=== PATIENT | male | born 2000 | race Caucasian/White ===

== ENCOUNTER 2022-08-26 12:37 | Outpatient (REF) | payer BC, SELFPAY ==
[2022-08-26 13:58] LABS: Hematocrit 43.8 % (42.0-52.0); Hemoglobin 15.2 g/dl (14.0-18.0); Mean Corpuscular HGB Conc 34.7 g/dl (31.0-36.0); Mean Corpuscular Hemoglobin 30.8 pg (27.0-33.0); Mean Corpuscular Volume 88.8 fL (80.0-98.0); Mean Platelet Volume 9.6 fL (9.4-12.4); Platelet Count 307 X10*3/uL (160-400); Red Blood Count 4.93 X10*6/uL (4.60-5.80); Red Cell Distribution Width 12.6 % (11.0-16.0); White Blood Count 5.9 X10*3/uL (4.8-10.8)
[2022-08-26 14:30] LABS: Alanine Aminotransferase 16 U/L (0-40); Albumin Level 4.6 g/dL (3.5-5.0); Alkaline Phosphatase 78 U/L (39-117); Anion Gap 13 (12-20); Aspartate Amino Transferase 17 U/L (5-37); Bilirubin Total 0.3 mg/dL (0.0-1.0); Blood Urea Nitrogen 15 mg/dL (9-16); Calcium 9.8 mg/dL (8.4-10.2); Carbon Dioxide 26 mmol/L (22-29); Chloride 107 mmol/L (96-108); Cholesterol 205 mg/dL; Estimated Glomerular Filt Rate > 60; Glucose Fasting 91 mg/dL (60-99); HDL Cholesterol 43 mg/dL; LDL Cholesterol Calculated 131 mg/dl; Potassium 5.1 mmol/L (3.3-5.1); Sodium 141 mmol/L (135-145); Total Protein 7.6 g/dL (6.5-8.0); Triglycerides 156 mg/dL
[2022-08-26 14:49] LABS: TSH reflex Free T4 3.15 uIU/mL (0.32-4.0)
== END 2022-08-26 12:38 | disposition home or self-care (01) ==
LOC: HO.WFDLDS 12:37
PROVIDERS: Visit Provider Nurse Practitioner Family
DX: Z00.00 Encounter for general adult medical examination without abnormal findings (principal)
CPT/HCPCS: 36415; 80053; 80061; 84443; 85027

== ENCOUNTER 2023-11-18 14:18 | Emergency (ER) | payer BC, SELFPAY ==
--- NOTE | ~2023-11-18 | US_ITS ---
EXAMINATION: US SCROTUM US SCROTAL DOPPLER CLINICAL INFORMATION: Left scrotal/testicular pain and swelling. Evaluate for testicular torsion.. COMPARISON: None available. TECHNIQUE: A sonogram of the scrotum was performed assessing hebert-scale appearance and color Doppler flow. Spectral Doppler analysis of the arterial and venous flow were performed in the testes bilaterally. FINDINGS: The testicles have normal homogeneous echotexture. No testicular microlithiasis or mass. The right testicle is 4.3 x 2.1 x 3 cm (14 mL and left testicle 3.9 x 2.8 x 3.4 cm (19 mL). Color Doppler images with spectral waveforms show presence of normal arterial and venous flow within testicles. No evidence of testicular torsion. The epididymal heads have a thickness of 1 cm and there are no focal lesions. The color Doppler images show hypervascular appearance of the right and left epididymis, and the left epididymis has a slightly more heterogeneous appearance than the right epididymis. This suggests possibility of mild inflammation from epididymitis. A small left hydrocele is present. No extratesticular mass. US/US scrotum doppler IMPRESSION: * No evidence of testicular mass or torsion. * There is a hypervascular appearance of each epididymis and the left epididymis is slightly heterogeneous which, along with observation of a small left hydrocele, raises suspicion for mild epididymitis.
--- NOTE | ~2023-11-18 | US_ITS ---
EXAMINATION: US SCROTUM US SCROTAL DOPPLER CLINICAL INFORMATION: Left scrotal/testicular pain and swelling. Evaluate for testicular torsion.. COMPARISON: None available. TECHNIQUE: A sonogram of the scrotum was performed assessing hebert-scale appearance and color Doppler flow. Spectral Doppler analysis of the arterial and venous flow were performed in the testes bilaterally. FINDINGS: The testicles have normal homogeneous echotexture. No testicular microlithiasis or mass. The right testicle is 4.3 x 2.1 x 3 cm (14 mL and left testicle 3.9 x 2.8 x 3.4 cm (19 mL). Color Doppler images with spectral waveforms show presence of normal arterial and venous flow within testicles. No evidence of testicular torsion. The epididymal heads have a thickness of 1 cm and there are no focal lesions. The color Doppler images show hypervascular appearance of the right and left epididymis, and the left epididymis has a slightly more heterogeneous appearance than the right epididymis. This suggests possibility of mild inflammation from epididymitis. A small left hydrocele is present. No extratesticular mass. US/US scrotum IMPRESSION: * No evidence of testicular mass or torsion. * There is a hypervascular appearance of each epididymis and the left epididymis is slightly heterogeneous which, along with observation of a small left hydrocele, raises suspicion for mild epididymitis.
[2023-11-18 14:34] VITALS: BP 136/91; PULSE 90; RESP 18; TEMP 36.6; O2SAT 99; BMI 31.4
--- NOTE | 2023-11-18 14:35 | ED_ITS ---
HPI - Male Genitourinary General Chief complaint: Urogenital-Male Stated complaint: Swelling L testicle Time Seen by Provider: 11/18/23 16:54 Source: patient Mode of arrival: ambulatory Limitations: no limitations History of Present Illness ED Provider: arianna REINA Narrative: Patient is sexually active with no history of STDs in the past comes here for pain in the left testicle started earlier today increases on standing , no penis discharge no abdominal pain no history of kidney stone no urinary symptoms Related Data Previous Rx's ?Medication ?Instructions ?Recorded doxycycline hyclate 100 mg tablet 100 mg PO BID #20 tabs 11/18/23 ibuprofen 600 mg tablet 600 mg PO Q6H PRN fever or pain 11/18/23 #30 tabs Allergies Allergy/AdvReac Type Severity Reaction Status Date / Time No Known Allergies Allergy Verified 11/18/23 14:36 Review of Systems Review of Systems: Yes all other systems are reviewed and are negative PMFSH Past Medical History Surgical History [employer] teeth extracted Family History Family History Paternal Grandfather Prostate cancer Social History Social History Alcohol intake: current Alcohol intake frequency: holidays/special occasions only Alcohol type: hard liquor Patient Tobacco Use Status: Never used Tobacco Smoked in Last 30 Days: No e-Cigarette/Vaping Use: Former Use Use of substances other than those prescribed or required for medical reasons: No Advance Directives: No Advance Directives Information Provided: No service: No Current occupational status: employed Current occupation: [employer] Current occupational exposures/hazards: No Physical Exam Vital Signs: Vital Signs: Last Vital Signs Temp 98.2 F 11/18/23 17:46 Pulse 73 11/18/23 17:46 Resp 14 11/18/23 17:46 BP 127/89 11/18/23 17:46 Pulse Ox 98 11/18/23 17:46 O2 Del Method Room Air 11/18/23 17:46 BMI result Body Mass Index 31.4 Appearance: Alert. Oriented X3. No acute distress. Neck: Normal inspection. Neck supple. CVS: Normal heart rate and rhythm. Pulses normal. Respiratory: No respiratory distress. Equal air entry bilateral, Abdomen: Soft and nontender. Bowel sounds are present, no mass palpable, no CVA tenderness Skin: Skin warm and dry. Normal skin color. Normal skin turgor. ; tender L testicle epididymis cremasteric reflex normal no hydrocele or h ernia Extremities: No lower extremity edema. No calf tenderness Neuro: Oriented X 3. Course Course Course Narrative: This is a Rapid Medical Exam performed in triage by Cinthia Nixon PA-C. Full HPI, ROS and PE to be performed by primary ED provider. 23 year-old w/ PMHx presenting to the ED c/o L testicular pain since 8AM w/assoc swelling. denies precipitating factors, N/V, lesions, dysuria. PE: nontoxic appearing. Area not examined in triage Plan: UA, CTNG, US Medications Administered Discontinued Medications Generic Name Dose Route Start Last Admin Trade Name Freq PRN Reason Stop Dose Admin Ceftriaxone Sodium 500 mg/ 0 mg 11/18/23 17:30 11/18/23 17:43 Lidocaine HCl 1 ml IM 11/18/23 17:31 1 kit ONCE ONE Administration Doxycycline Monohydrate 100 mg 11/18/23 17:30 11/18/23 17:43 Doxycycline Monohydrate 100 Mg Capsule PO 11/18/23 17:31 100 mg ONCE ONE Administration Medical Decision Making Differential Diagnosis Differential Diagnoses: The differential diagnosis associated with the presentation includes Epididymitis/testicular torsion/kidney stone/ hydrocele/hernia Lab Data MDM Lab Attestation statement: I reviewed the patient's lab results. Labs: Lab Results 11/18/23 Range/Units 15:35 Urine Color Yellow Urine Appearance Clear Urine pH 6.5 (5.0-9.0) Ur Specific [place] >= 1.030 H (1.005-1.025) Urine Protein Negative (Neg-Trace) mg/dL Urine Glucose (UA) Negative (Negative) mg/dL Urine Ketones Trace (Negative) mg/dL Urine Blood Negative (Negative) Urine Nitrite Negative (Negative) Ur Leukocyte Esterase Negative (Negative) Chlam trachomat DNA PCR NOT DETECTED (Not Detect.) N.gonorrhoeae DNA (PCR) NOT DETECTED (Not Detect.) Independent Interpretation I performed an independent interpretation of an: Ultrasound Radiology Impression Discussion of test interpretation with radiology: I have reviewed the radiologist's reading. Discharge Plan Discharge Clinical Impression: Epididymitis Patient Disposition: Home, Self-Care Instructions: Epididymitis (ED) Additional Instructions: Scrotal support as advised Take antibiotics As prescribed Report to the ER if worsening of the pain Follow up with PCP Prescriptions: New doxycycline hyclate 100 mg tablet 100 mg PO BID Qty: 20 0RF ibuprofen 600 mg tablet 600 mg PO Q6H PRN (Reason: fever or pain) Qty: 30 0RF Interventions: ED Discharge Assessment Last Done: 11/18/23 17:46 Discharge Date/Time: 11/18/23 17:48 Print Language: Albanian
[2023-11-18 15:45] LABS: Appearance Urine Clear; Color Urine Yellow; Glucose Urine UA Negative (Negative); Leukocyte Esterase Urine Negative (Negative); Nitrite Urine Negative (Negative); PH 6.5 (5.0-9.0); Specific Gravity - Urine >= 1.030 (1.005-1.025); Urine Blood Negative (Negative); Urine Ketones Trace mg/dL (Negative); Urine Protein Negative (Neg-Trace)
[2023-11-18 17:01] VITALS: BP 127/89; PULSE 73; RESP 14; TEMP 36.8; O2SAT 98
--- NOTE | 2023-11-18 17:17 | PC.NURSE ---
Pt from waiting room with c/o scrotum pain 01/07. Reports rest as a relieving factor and movement as an exacerbating factor. VSS, A&Ox3, and afebrile. Pt is calm and cooperative and is currently resting comfortably. U/S and urine labs pending. Mother at bedside.
[2023-11-18] MEDS: Doxycycline Monohydrate 100 MG CAPSULE PO (17:43)
[2023-11-18] MEDS: cefTRIAXone sodium 500 MG, Lidocaine HCl 1 % MPF 1 ML IM (17:43)
[2023-11-18 17:46] VITALS: BP 127/89; PULSE 73; RESP 14; TEMP 36.8; O2SAT 98
[2023-11-18 18:42] LABS: CT PCR NOT DETECTED (Not Detect.); NG PCR NOT DETECTED (Not Detect.)
== END 2023-11-18 17:48 | disposition home or self-care (01) ==
PROVIDERS: Physician Assistant; Emergency Provider Internal Medicine
DX: N45.1 Epididymitis (principal); N50.812 Left testicular pain; N50.82 Scrotal pain; N50.89 Other specified disorders of the male genital organs
CPT/HCPCS: 0353U; 76870; 81003; 93975; 96372; 99284; J0696

== ENCOUNTER 2024-02-15 16:41 | Emergency (ER) | payer BC, SELFPAY ==
--- NOTE | ~2024-02-15 | US_ITS ---
Examination: US pelvic limited (accession [id number]), US scrotum (accession [id number]), US scrotum doppler (accession [id number]) Indication: left inguinal pain Comparison: No pertinent prior studies are currently available for comparison. Technique: Multiple sonographic views of the scrotum and inguinal region obtained. Grayscale imaging along with pulsed wave and color flow Doppler utilized. Findings: Right testicle measures 4.6 x 2.4 x 3.0 cm in size for a volume of 16.9 cc. The left testicle measures 4.1 x 2.9 x 3.8 cm for a volume of 23.6 cc. Left epididymis appears slightly heterogeneous with more normal appearance to the right epididymis. On the initial images there did appear to be decreased flow to the left testicle. The attending physician came to the room and twisted the left testicle at that time with return of a more normal arterial and venous waveform pattern to the left testicle. By the end of the study there is more normal expected arterial venous waveform patterns to the left testicle. US/US pelvic limited Impression: Initial images demonstrated decreased vascular flow to the left testicle. The attending physician then came to the room with manipulation of the left testicle with subsequent return of a more normal arterial and venous waveform pattern to the left testicle. Electronically signed by: Sanjay Valenzuela MD 02/15/2024 07:35 PM EDT Workstation: [employer]
--- NOTE | ~2024-02-15 | US_ITS ---
Examination: US pelvic limited (accession [id number]), US scrotum (accession [id number]), US scrotum doppler (accession [id number]) Indication: left inguinal pain Comparison: No pertinent prior studies are currently available for comparison. Technique: Multiple sonographic views of the scrotum and inguinal region obtained. Grayscale imaging along with pulsed wave and color flow Doppler utilized. Findings: Right testicle measures 4.6 x 2.4 x 3.0 cm in size for a volume of 16.9 cc. The left testicle measures 4.1 x 2.9 x 3.8 cm for a volume of 23.6 cc. Left epididymis appears slightly heterogeneous with more normal appearance to the right epididymis. On the initial images there did appear to be decreased flow to the left testicle. The attending physician came to the room and twisted the left testicle at that time with return of a more normal arterial and venous waveform pattern to the left testicle. By the end of the study there is more normal expected arterial venous waveform patterns to the left testicle. US/US scrotum Impression: Initial images demonstrated decreased vascular flow to the left testicle. The attending physician then came to the room with manipulation of the left testicle with subsequent return of a more normal arterial and venous waveform pattern to the left testicle. Electronically signed by: Sanjay Valenzuela MD 02/15/2024 07:35 PM EDT Workstation: [employer]
--- NOTE | ~2024-02-15 | US_ITS ---
Examination: US pelvic limited (accession [id number]), US scrotum (accession [id number]), US scrotum doppler (accession [id number]) Indication: left inguinal pain Comparison: No pertinent prior studies are currently available for comparison. Technique: Multiple sonographic views of the scrotum and inguinal region obtained. Grayscale imaging along with pulsed wave and color flow Doppler utilized. Findings: Right testicle measures 4.6 x 2.4 x 3.0 cm in size for a volume of 16.9 cc. The left testicle measures 4.1 x 2.9 x 3.8 cm for a volume of 23.6 cc. Left epididymis appears slightly heterogeneous with more normal appearance to the right epididymis. On the initial images there did appear to be decreased flow to the left testicle. The attending physician came to the room and twisted the left testicle at that time with return of a more normal arterial and venous waveform pattern to the left testicle. By the end of the study there is more normal expected arterial venous waveform patterns to the left testicle. US/US scrotum doppler Impression: Initial images demonstrated decreased vascular flow to the left testicle. The attending physician then came to the room with manipulation of the left testicle with subsequent return of a more normal arterial and venous waveform pattern to the left testicle. Electronically signed by: Sanjay Valenzuela MD 02/15/2024 07:35 PM EDT
[2024-02-15 17:09] VITALS: BP 143/92; PULSE 78; RESP 16; TEMP 36.9; O2SAT 99; BMI 30.6
--- NOTE | 2024-02-15 17:09 | ED_ITS ---
HPI - Abdominal Pain General Chief Complaint: Abdominal Pain Stated Complaint: ?Hernia/Sent from urgent Care Time Seen by Provider: 02/15/24 18:09 Source: patient Mode of arrival: ambulatory Limitations: no limitations History of Present Illness ED Provider: Dr. Lupe Vasques HPI narrative: patient comes to the emergency room from urgent care. Patient states that approximately 9 hours ago, patient woke up with testicular pain on the left side. Patient went to urgent care and they asked him to come to the emergency room to further get evaluated. Patient denies penile discharge, no hematuria or dysuria, no fever chills. Related Data Previous Rx's ?Medication ?Instructions ?Recorded doxycycline hyclate 100 mg tablet 100 mg PO BID #20 tabs 11/18/23 ibuprofen 600 mg tablet 600 mg PO Q6H PRN fever or pain 11/18/23 #30 tabs Allergies Allergy/AdvReac Type Severity Reaction Status Date / Time No Known Allergies Allergy Verified 02/15/24 17:11 Review of Systems Review of Systems Constitutional : No Weight loss, No Fever, No Chills, No Night Sweats, No Fatigue, No Malaise ENT/Mouth : No Hearing loss, No Ear Pain, No Nasal Congestion, No Sinus Pain, No Hoarseness, No sore throat, No Rhinorrhea, No Swallowing Difficulty Eyes: No Eye Pain, No Swelling, No Redness, No Foreign Body, No Discharge, No Vision Changes Cardiovascular : No Chest Pain, No SOB, No Dyspnea on Exertion, No Orthopnea, No Edema, No Palpitations Respiratory : No Cough, No Sputum, No Wheezing, No Smoke Exposure, No Dyspnea Gastrointestinal : No Nausea, No Vomiting, No Diarrhea, No Constipation, No abdominal Pain, No Hematochezia, No Melena Genitourinary : Complaining of left testicular pain and swelling, No Dysuria, No Urinary Frequency, No Hematuria, No Urinary Incontinence, No Urgency, No Flank Pain, No Urinary Flow Changes, No Hesitancy Musculoskeletal : No joint pain, No Myalgias, No Joint Swelling Skin : No Skin Lesions, No rash Neuro : No Weakness, No Numbness, No Paresthesias, No Loss of Consciousness, No Dizziness, No Headache Psych : No Anxiety/Panic, No Depression, No SI/HI/AH/VH, No Social Issues, Heme/Lymph: No Bruising, No Bleeding,No Lymphadenopathy Endocrine : No Polyuria, No Polydipsia, No Temperature Intolerance [facility] Past Medical History Surgical History [employer] teeth extracted Family History Family History Paternal Grandfather Prostate cancer Social History Social History Alcohol intake: current Alcohol intake frequency: holidays/special occasions only Alcohol type: hard liquor Patient Tobacco Use Status: Never used Tobacco Smoked in Last 30 Days: No e-Cigarette/Vaping Use: Former Use Use of substances other than those prescribed or required for medical reasons: No Advance Directives: No Advance Directives Information Provided: No service: No Current occupational status: employed Current occupation: [employer] Current occupational exposures/hazards: No Physical Exam ED Vital Signs: Vital Signs - 24 hr 02/15/24 17:09 Temperature 98.4 F Pulse Rate 78 Respiratory Rate 16 Blood Pressure 143/92 H Pulse Oximetry 99 Oxygen Delivery Method Room Air BMI result Body Mass Index 30.6 Const Other: Appearance: Alert. Oriented X3. No acute distress. Eyes: Pupils equal, round and reactive to light. ENT: Pharynx normal. Neck: Normal inspection. Neck supple. No lymph nodes noted. No crepitus CVS: Normal heart rate and rhythm. Pulses normal. Normal S1 and S2 Respiratory: No respiratory distress. Breath sounds normal. No Wheezing. No rales Abdomen: Soft and nontender. No rigidity. No distention. - : The left testicle looks swollen Skin: Skin warm and dry. Normal skin color. Normal skin turgor. Extremities: No lower extremity edema. No Lacerations. No Rash Neuro: Oriented X 3. No motor deficit. No sensory deficit. Moving all extremities. No slurred speech. CN 2 through 12 grossly intact Psych: calm, cooperative, normal affect Course Course Course Narrative: This is a Rapid Medical Examination (RME) performed by Ayanna Benoit PA-C in triage. Full HPI, ROS, assessment and treatment plan per primary provider in the Main ED. 23 yo male with no medical problems presents to the ER from Urgent Care for evaluation of 9/10 left scrotal pain and left lower abdominal pain that started at 9am when he was moving equipment at work. Pain has been worsening. +nausea but no vomiting. reports significant swelling in the left inguinal area and left testes. Sent in from urgent care to r/o torsion or a hernia. Plan: US, UA and labs Medical Decision Making Medical Decision Making [facility] Narrative: I received a phone call from ultrasound. The patient has no flow to the left testicle. I went to see the patient in the ultrasound room, the towards the testicle. Ultrasound was repeated, patient has now floor. Patient states that he feels much better. - we tiger text Dr. Pabon, urology on-call office, no response. Patient states that he feels well and no longer wants to wait. Patient being discharged. Instructed to return to the emergency room he has any recurring symptoms. Patient will call Dr. Pabon's office for follow-up and possible scheduled surgery Differential Diagnosis Differential Diagnoses: The differential diagnosis associated with the presentation includes ( epididymitis, testicular torsion) Lab Data [facility] Lab Attestation statement: I reviewed the patient's lab results. 02/15/24 17:44 02/15/24 17:44 Labs: Lab Results 02/15/24 Range/Units 17:44 WBC 9.1 (4.8-10.8) X10*3/uL RBC 4.76 (4.60-5.80) X10*6/uL Hgb 15.2 (14.0-18.0) g/dl Hct 42.6 (42.0-52.0) % MCV 89.5 (80.0-98.0) fL MCH 31.9 (27.0-33.0) pg MCHC 35.7 (31.0-36.0) g/dl RDW 12.6 (11.0-16.0) % Plt Count 306 (160-400) X10*3/uL MPV 9.1 L (9.4-12.4) fL Immature Gran % (Auto) 0.1 (0.0-0.4) % Neut % (Auto) 76.5 H (45-73) % Lymph % (Auto) 18.7 L (20-40) % [place] % (Auto) 4.3 (2-11) % Eos % (Auto) 0.1 (0-4) % Baso % (Auto) 0.3 (0-2) % Lymph # (Auto) 1.7 (1.2-4.9) X10*3/uL [place] # (Auto) 0.4 (0.1-1.2) X10*3/uL Eos # (Auto) 0.0 (0.0-0.4) X10*3/uL Baso # (Auto) 0.0 (0.0-0.2) X10*3/uL Abs Immat Gran (auto) 0.01 (0.00-0.03) X10*3/uL Absolute Neuts (auto) 7.0 (2.0-8.3) x10*3/uL Absolute Nucleated RBC 0.000 (0.0-0.012) X10*3/uL Nucleated RBC % (auto) 0.0 (0.0-0.2) /100WBC Sodium 142 (135-145) mmol/L Potassium 4.7 (3.3-5.1) mmol/L Chloride 105 (96-108) mmol/L Carbon Dioxide 27 (22-29) mmol/L Anion Gap 15 (12-20) BUN 13 (9-16) mg/dL Creatinine 0.93 (0.5-1.4) mg/dL Estim Creat Clear Calc 117.6 Estimated GFR > 60 Random Glucose 102 (60-115) mg/dL Calcium 10.0 (8.4-10.2) mg/dL Magnesium 2.2 (1.6-2.6) mg/dL Total Bilirubin 0.6 (0.0-1.0) mg/dL Direct Bilirubin 0.2 (0.0-0.5) mg/dL AST 19 (5-37) U/L ALT 21 (0-40) U/L Alkaline Phosphatase 61 (39-117) U/L Total Protein 8.3 H (6.5-8.0) g/dL Albumin 5.0 (3.5-5.0) g/dL Urine Color Yellow Urine Appearance Clear Urine pH 6.0 (5.0-9.0) Ur Specific [place] >= 1.030 H (1.005-1.025) Urine Protein Negative (Neg-Trace) mg/dL Urine Glucose (UA) Negative (Negative) mg/dL Urine Ketones 15 (Negative) mg/dL Urine Blood Negative (Negative) Urine Nitrite Negative (Negative) Ur Leukocyte Esterase Negative (Negative) Independent Interpretation I performed an independent interpretation of an: Ultrasound Radiology Impression Discussion of test interpretation with radiology: I have reviewed the radiologist's reading. Radiologist Impression: Findings: Right testicle measures 4.6 x 2.4 x 3.0 cm in size for a volume of 16.9 cc. The left testicle measures 4.1 x 2.9 x 3.8 cm for a volume of 23.6 cc. Left epididymis appears slightly heterogeneous with more normal appearance to the right epididymis. On the initial images there did appear to be decreased flow to the left testicle. The attending physician came to the room and twisted the left testicle at that time with return of a more normal arterial and venous waveform pattern to the left testicle. By the end of the study there is more normal expected arterial venous waveform patterns to the left testicle. US/US pelvic limited Impression: Initial images demonstrated decreased vascular flow to the left testicle. The attending physician then came to the room with manipulation of the left testicle with subsequent return of a more normal arterial and venous waveform pattern to the left testicle. Medications Administered Discontinued Medications Generic Name Dose Route Start Last Admin Trade Name Freq PRN Reason Stop Dose Admin Ibuprofen 600 mg 02/15/24 19:19 02/15/24 19:55 Ibuprofen 600 Mg Tablet PO 02/15/24 19:20 600 mg ONCE ONE Administration Critical Care Time Critical Care Time Critical Care Time: Yes Total Critical Care Time: 60 Attestation: I have personally provided critical care time. Time includes review of lab data, radiology results, discussion with consultants, and monitoring for potential decompensation. Intervention performed as documented. Discharge Plan Discharge Clinical Impression: Testicular torsion Patient Disposition: Home, Self-Care Instructions: Testicular Torsion (ED) Additional Instructions: Please follow-up with your primary care physician tomorrow. If you have any worsening or new symptoms, please return to the emergency room or call 911 Prescriptions: No Action doxycycline hyclate 100 mg tablet 100 mg PO BID Qty: 20 0RF ibuprofen 600 mg tablet 600 mg PO Q6H PRN (Reason: fever or pain) Qty: 30 0RF Referrals: Avni Pabon MD [Physician] - 02/16/24 Print Language: Azeri
[2024-02-15 17:49] LABS: MANUAL DIFF FLAG NO
[2024-02-15 17:50] LABS: Basophils Percent Auto 0.3 % (0-2); Eosinophils Percent Auto 0.1 % (0-4); Hematocrit 42.6 % (42.0-52.0); Hemoglobin 15.2 g/dl (14.0-18.0); Imm Gran Abs Auto 0.01 X10*3/uL (0.00-0.03); Imm Gran Pct Auto 0.1 % (0.0-0.4); Lymphocytes Absolute Auto 1.7 X10*3/uL (1.2-4.9); Lymphocytes Percent Auto 18.7 % (20-40); Mean Corpuscular HGB Conc 35.7 g/dl (31.0-36.0); Mean Corpuscular Hemoglobin 31.9 pg (27.0-33.0); Mean Corpuscular Volume 89.5 fL (80.0-98.0); Mean Platelet Volume 9.1 fL (9.4-12.4); Monocytes Absolute Auto 0.4 X10*3/uL (0.1-1.2); Monocytes Percent Auto 4.3 % (2-11); Neutrophils Percent Auto 76.5 % (45-73); Platelet Count 306 X10*3/uL (160-400); Red Blood Count 4.76 X10*6/uL (4.60-5.80); Red Cell Distribution Width 12.6 % (11.0-16.0); White Blood Count 9.1 X10*3/uL (4.8-10.8)
[2024-02-15 18:05] LABS: Appearance Urine Clear; Color Urine Yellow; Glucose Urine UA Negative (Negative); Leukocyte Esterase Urine Negative (Negative); Nitrite Urine Negative (Negative); Specific Gravity - Urine >= 1.030 (1.005-1.025); Urine Blood Negative (Negative); Urine Ketones 15 mg/dL (Negative); Urine Protein Negative (Neg-Trace)
[2024-02-15 18:10] LABS: Alanine Aminotransferase 21 U/L (0-40); Alkaline Phosphatase 61 U/L (39-117); Aspartate Amino Transferase 19 U/L (5-37); Bilirubin Direct 0.2 mg/dL (0.0-0.5); Bilirubin Total 0.6 mg/dL (0.0-1.0); Blood Urea Nitrogen 13 mg/dL (9-16); Carbon Dioxide 27 mmol/L (22-29); Chloride 105 mmol/L (96-108); Creatinine Clr Calc Pharmacy 117.6; Estimated Glomerular Filt Rate > 60; Glucose Random 102 mg/dL (60-115); Magnesium 2.2 mg/dL (1.6-2.6); Potassium 4.7 mmol/L (3.3-5.1); Sodium 142 mmol/L (135-145); Total Protein 8.3 g/dL (6.5-8.0)
[2024-02-15 18:25] LABS: Anion Gap 15 (12-20)
--- NOTE | 2024-02-15 18:50 | PC.NURSE ---
Assumed care of pt. Pt lying on stretcher, no acute distress at this time.
[2024-02-15] MEDS: Ibuprofen 600 MG TABLET PO (19:55)
[2024-02-15 21:21] VITALS: BP 140/72; PULSE 77; RESP 16; TEMP 36.6; O2SAT 99
== END 2024-02-15 21:22 | disposition home or self-care (01) ==
PROVIDERS: Physician Assistant; Emergency Provider Emergency Medicine; PCP Nurse Practitioner Family
DX: N44.00 Torsion of testis, unspecified (principal); N50.812 Left testicular pain; R10.2 Pelvic and perineal pain; Z79.899 Other long term (current) drug therapy
CPT/HCPCS: 36415; 76857; 76870; 80048; 80076; 81003; 83735; 85025; 93975; 99284

== ENCOUNTER 2024-03-02 13:24 | Outpatient (AMB) | payer BC, SELFPAY ==
--- NOTE | 2024-03-02 13:31 | MHC.OFFVIS ---
Intake Visit Reasons: ER follow up/testicluar torsion Intake Note: New Patient is present for [facility] [place] Follow up for Testicular Torision Patient had both Pelvis and Scrotum Ultrasound Patient states that he has no pain or discomfort since his ER Visit denies any urinary issues states that he just has a mental concern wants to make sure that everything is okay Chief Mate Required: No Accompanied by: Self / Same As Patient Allergies No Known Allergies Allergy (Verified 03/02/24 13:36) HPI Comments Details: Franko is a pleasant male. He he is a patient of Dr. Ramon. He is seen for the following urologic conditions. - testicle torsion Had 180 degree torsion on left testicle and presented through ER Detorsion performed by ER physician Discussed risk of having recurrent portion in a 23-year-old This is a low risk Does have a horizontal lie to his testicles which places him at higher risk He is aware Will come back to the hospital if has issues PFSH Surgical History [place] teeth extracted Family History Paternal Grandfather Prostate cancer Social History Alcohol intake: current Alcohol intake frequency: holidays/special occasions only Alcohol type: hard liquor Patient Tobacco Use Status: Never used Tobacco e-Cigarette/Vaping Use: Former Use service: No Current occupational status: employed 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 [employer] Current occupational exposures/hazards: No Review of Systems Const Denies chills and Denies fever(s) Card Reports no additional complaints and Denies syncope Resp Denies cough GI Denies abdominal pain and Denies heartburn Reports as per HPI and Denies change in libido Neuro Denies syncope Psych Denies change in libido Endo Denies change in libido Physical Exam Const General: cooperative, healthy appearing, comfortable and no acute distress Orientation/consciousness: patient oriented x3 HEENT Face and sinus: Yes normal facial exam Mouth: moist mucous membranes Neck Neck: Yes normal visual inspection, Yes full ROM and Yes trachea midline Chest Chest palpation & inspection: normal inspection of the chest Resp Effort & Inspection: normal respiratory effort, able to speak in complete sentences and no respiratory distress GI Inspection: Yes normal to inspection Back/Spine/Pelvis Cervical Spine: normal cervical lordosis Thoracic/Lumbar Spine: thoracic and lumbar spine normal to inspection Skin General skin exam: no rashes or lesions noted Neuro General: patient oriented x3, gait normal, tone normal and moves all extremities Extrem General: Yes normal to inspection and Yes capillary refill normal Assessment & Plan Assessment & Plan (1) Testicular torsion: Code(s): N44.00 - Torsion of testis, unspecified Category: Medical Plan P.r.n. follow-up Patient Instructions: Imaging studies, laboratory and physical exam results were discussed and reviewed in detail. No major barriers to patient understanding were identified. An opportunity to ask questions regarding the treatment plan was provided. All questions were answered. The patient expressed understanding and agreement with the above treatment plan. The patient is aware they should contact our office by phone for worsening of their current condition or the appearance of new urologic symptoms. Compliance is encouraged with any medications and followup testing that is ordered. It is a privilege to participate in the urologic care of your patient. If you have any questions or concerns regarding treatment for the above conditions, or other urologic issues, please do not hesitate to contact me. The office telephone contact is [phone]. This note is constructed using voice recognition software. While every effort has been made to ensure accuracy evp operations errors may have been included. Yours sincerely, Dr Avni Pabon MD, [facility] - Urology Providers of Expert, Compassionate Care for the Genitourinary System Coding Level of Care Code New Pt Level 3 (16980) Diagnoses Testicular torsion N44.00
== END 2024-03-02 13:47 | disposition home or self-care (01) ==
PROVIDERS: PCP Nurse Practitioner Family; Visit Provider Urology
DX: N44.00 Torsion of testis, unspecified (principal)
CPT/HCPCS: 99203

== ENCOUNTER → 2024-03-02 13:24 | Outpatient (BNVA) | payer BC, SELFPAY | PROVIDERS: PCP Nurse Practitioner Family; Visit Provider Urology ==

== ENCOUNTER 2024-05-18 15:00 | Outpatient (AMB) | payer BC, SELFPAY ==
--- NOTE | 2024-05-18 15:02 | MHC.PC.OV ---
Vital Signs 05/18/24 15:06 Height 5 ft 4 in Weight 190 lb BMI 32.6 BP 133/79 Blood Pressure Location Rt brachial Position Sitting Respiration 16 Pulse 106 H Pulse Source Pulse Oximeter Temp 97.9 F Temp Source Oral Pulse Oximetry (%) 96 Oxygen Delivery Method Room Air Intake Visit Reasons: Thyroid chk Intake Note: Patient here c/o of always feeling tired and has gained weight, he would like to re-check his thyroids. 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 He gets easily tired as the day progresses. His symptoms have been ongoing for the past 2-3 weeks and progressively worsening. No other symptoms. He has been doing cardio exercise routinely. [facility] Surgical History [place] teeth extracted Family History Paternal Grandfather Prostate cancer Social History Alcohol intake: current Alcohol intake frequency: holidays/special occasions only Alcohol type: hard liquor Patient Tobacco Use Status: Never used Tobacco e-Cigarette/Vaping Use: Former Use service: No Current occupational status: employed Current occupation: [email or web address] Current occupational exposures/hazards: No Cognitive needs: No Hearing needs: No Vision needs: No Questionnaire PHQ-9 Over the last 2 weeks, how often have you been bothered by any of the following problems? 1. Little interest or pleasure in doing things: not at all 2. Feeling down, depressed, or hopeless: not at all 3. Trouble falling or staying asleep, or sleeping too much: not at all 4. Feeling tired or having little energy: several days 5. Poor appetite or overeating: several days 6. Feeling bad about yourself - or that you are a failure or have let yourself or your family down: not at all 7. Trouble concentrating on things, such as reading the newspaper or watching television: not at all 8. Moving or speaking so slowly that other people could have noticed. Or the opposite - being so fidgety or restless that you have been moving around a lot more than usual: not at all 9. Thoughts that you would be better off or of hurting yourself in some way: not at all Total score: 2 Depression Screening Interpretation: Negative Depression Screening Done: Yes 52933 - PHQ-9 Billing: Yes Source: Developed by Drs. Dillan Wilson, Cielo Tabor, Haresh López and colleagues, with an educational vickey from [employer]. Thrive Questionnaire Date Thrive assessed: 05/18/24 I am a: Patient What is your living situation today?: I have a steady place to live Within the past 12 months, did the food you bought not last and you didn't have the money to get more?: Never true Within the past 12 months, did you worry whether your food would run out before you got money to buy more?: Never true Do you have trouble paying for medicines?: No Do you have trouble getting transportation to medical appointments?: No Do you have trouble paying your heating and electricity bill?: No Do you have trouble taking care of your child, family member or friend?: No Do you have trouble with day-to-day activities such as bathing, preparing meals, shopping, managing finances, etc.?: No Are you currently unemployed and looking for a job?: No Are you interested in more education?: No Please select the resources that you would like help with: None Currently or been in a relationship where the following occur: No concerns reported and I choose not to answer THRIVE Score: 0 AUDIT C Alcohol Use Questionnaire (AUDIT-C) 1. How often do you have a drink containing alcohol?: 2-3 times a week 2. How many drinks containing alcohol do you have on a typical day when you are drinking?: 1 or 2 3. How often do you have six or more drinks on one occasion?: Less than monthly Total Score: 4 Score Reviewed/Action Taken: Yes MARYAM-7 AMB Questionnaire MARYAM-7 Date MARYAM - 7 assessed: 05/18/24 Feeling nervous, anxious, or on edge: 0 = Not at all Not being able to stop or control worryin = Not at all Worrying too much about different things: 0 = Not at all Trouble relaxin = Not at all Being so restless that it is hard to sit still: 0 = Not at all Becoming easily annoyed or irritable: 0 = Not at all Feeling afraid as if something awful might happen: 0 = Not at all Total MARYAM-7 score (0-4 normal; 5-9 mild; 10-14 moderate; 15-21 severe): 0 Source: Developed by Drs. Dillan Wilson, Cielo Tabor, Haresh López and colleagues, with an educational vickey from [employer]. MARYAM-7 Assessment Billing MARYAM-7 Assessment Tool: MARYAM-7 Assessment 20765 Review of Systems Const Details: Const Denies chills, Reports fatigue, Denies fever(s), Denies headache(s) and Denies weakness ENT Denies dizziness and Denies headache(s) Card Denies chest pain, Denies lightheadedness, Denies dyspnea and Denies other (Palpitations) Resp Denies cough, Denies dyspnea, Denies wheezing and Denies other ( shortness of breath) GI Denies abdominal pain, Denies melena, Denies hematochezia, Denies change in bowel habits, Denies dyspepsia and Denies nausea Denies hematuria and Denies dysuria Musc Denies abnormal gait, Denies myalgias, Denies arthralgias, Denies numbness and Denies tingling Skin/Breast Denies rash, Denies unusual bruising and Denies wounds Neuro Denies abnormal gait, Denies dizziness, Denies headache(s), Denies memory loss, Denies numbness, Denies Sensory deficit (Neuro), Denies tingling and Denies weakness Psych Denies anxiety, Denies depression, Denies memory loss Endo Denies cold intolerance, Reports fatigue, Denies heat intolerance, Denies polydipsia and Denies polyuria Aller/Immun Denies wheezing Physical exam (Primary Care) Vital Signs: Last Vital Signs Temp 97.9 F 05/18/24 15:06 Pulse 106 H 05/18/24 15:06 Resp 16 05/18/24 15:06 BP 133/79 05/18/24 15:06 Pulse Ox 96 05/18/24 15:06 Oxygen Delivery Method Room Air 05/18/24 15:06 BMI result Body Mass Index 32.6 Tobacco/Smoking Status: Tobacco use Status Tobacco use date assessed 05/18/24 05/18/24 15:10 Patient Tobacco Use Status Never used Tobacco 05/18/24 15:04 Tobacco use type 02/16/24 12:12 e-Cigarette/Vaping Use Former Use 05/18/24 15:04 PHQ-9: PHQ-9 Score PHQ-9: Total score 2 05/18/24 15:10 Depression Screening Interpretation: Negative Thrive Assessment: Date of Thrive Assessment Date Thrive assessed 05/18/24 05/18/24 15:10 Currently or been in a relationship where the following occur: No concerns reported and I choose not to answer Const Other: General: no acute distress and well developed Nutritional Appearance: well nourished Orientation/consciousness: patient oriented x3 HENMT Head: Yes normocephalic and Yes atraumatic Eyes General: appearance normal, both eyes and all related structures Pupils: Equal, round and reactive pupils present EOM: EOMs intact bilaterally Resp Effort & Inspection: normal respiratory effort Auscultation: clear to auscultation bilaterally Cardio Rate: regular rate Rhythm: regular rhythm Heart sounds: S1 normal heart sound present, S2 normal heart sound present, no gallops, no murmurs and no rubs GI Palpation (GI): No Abdominal aortic bruit present, Soft to palpation, nontender, No hepatosplenomegaly present and No Rebound tenderness present Auscultation: normal bowel sounds General: Yes no CVA tenderness Back/Spine/Pelvis Back: no CVA tenderness Cervical Spine: cervical ROM normal and No Cervical spine tenderness Thoracic/Lumbar Spine: thoraco-lumbar ROM normal, No pain with thoraco-lumbar ROM, No thoracic spinal tenderness and No lumbar spinal tenderness Extrem General: Yes normal to inspection, No edema and No calf tenderness Skin General: warm and dry. Normal skin color. Normal skin turgor Neuro General: patient oriented x3, gait normal and no focal neuro deficit Cranial nerves: Yes Equal, round and reactive pupils present Cognition (Neuro): normal cognition Gait exam (Neuro): Normal gait present Sensory Exam: No Sensory deficit (Neuro) Psych Appearance: grossly normal Affect: normal affect Attitude: cooperative Thought process: Normal thought process present Coding Level of Care Code Est Pt Level 3 (12706) Diagnoses Fatigue R53.83 Laboratory tests ordered as part of a complete physical exam (CPE) Z00.00 Additional Codes MARYAM-7 Assessment Billing - MARYAM-7 Assessment Tool: MARYAM-7 Assessment 60742 ([id number]) PHQ-9 - 95628 - PHQ-9 Billing: Yes ([id number]) Assessment & Plan Assessment & Plan (1) Fatigue: Code(s): R53.83 - Other fatigue Category: Medical Plan: Fatigue times 2-3 weeks, progressively worsening. Continue routine exercise. Will check CBC, BMP, TSH, and vitamin-D level. Will make changes as needed. Advised to fast for 10-12 hours, may drink water, and get lipid panel blood work done 2-3 days before his next visit. Follow-up for an extended physical exam or return sooner with worsening or new symptoms. Verbalized understanding and agreed with the plan (2) Laboratory tests ordered as part of a complete physical exam (CPE): Code(s): Z00.00 - Encounter for general adult medical examination without abnormal findings Category: Medical Plan: Fasting labs ordered as part of a complete physical exam. Advised to fast for at least 10 hours before getting labs drawn. May drink water Verbalized understanding and agreed with treatment plan. Orders: Orders TSH reflex Free T4 Today R53.83 - Other fatigue Complete Blood Count Auto Diff Today R53.83 - Other fatigue Vitamin D 25-OH Total Today R53.83 - Other fatigue Lipid Panel Today Z00.00 - Encounter for general adult medical examination without abnormal findings Basic Metabolic Panel Today R53.83 - Other fatigue
[2024-05-18 15:06] VITALS: BP 133/79; PULSE 106; RESP 16; TEMP 36.6; O2SAT 96; BMI 32.6
== END 2024-05-18 15:28 | disposition home or self-care (01) ==
PROVIDERS: PCP Nurse Practitioner Family; Visit Provider Nurse Practitioner Family
DX: R53.83 Other fatigue (principal); Z00.00 Encounter for general adult medical examination without abnormal findings

== ENCOUNTER → 2024-05-18 15:00 | Outpatient (BNVA) | payer BC, SELFPAY | PROVIDERS: PCP Nurse Practitioner Family; Visit Provider Nurse Practitioner Family | DX: R53.83 Other fatigue (principal) | CPT/HCPCS: 96127 ==

== ENCOUNTER 2024-05-18 15:35 | Outpatient (REF) | payer BC, SELFPAY ==
[2024-05-18 17:30] LABS: MANUAL DIFF FLAG NO
[2024-05-18 17:35] LABS: Basophils Percent Auto 0.7 % (0-2); Eosinophils Absolute Auto 0.1 X10*3/uL (0.0-0.4); Eosinophils Percent Auto 1.5 % (0-4); Hematocrit 41.3 % (42.0-52.0); Hemoglobin 14.7 g/dl (14.0-18.0); Imm Gran Abs Auto 0.01 X10*3/uL (0.00-0.03); Imm Gran Pct Auto 0.2 % (0.0-0.4); Lymphocytes Absolute Auto 2.6 X10*3/uL (1.2-4.9); Lymphocytes Percent Auto 43.4 % (20-40); Mean Corpuscular HGB Conc 35.6 g/dl (31.0-36.0); Mean Corpuscular Hemoglobin 31.4 pg (27.0-33.0); Mean Corpuscular Volume 88.2 fL (80.0-98.0); Mean Platelet Volume 9.4 fL (9.4-12.4); Monocytes Absolute Auto 0.4 X10*3/uL (0.1-1.2); Monocytes Percent Auto 6.4 % (2-11); Neutrophils Absolute Auto 2.9 x10*3/uL (2.0-8.3); Neutrophils Percent Auto 47.8 % (45-73); Platelet Count 325 X10*3/uL (160-400); Red Blood Count 4.68 X10*6/uL (4.60-5.80); White Blood Count 6.1 X10*3/uL (4.8-10.8)
[2024-05-18 17:48] LABS: Anion Gap 10 (12-20); Blood Urea Nitrogen 13 mg/dL (9-16); Calcium 9.5 mg/dL (8.4-10.2); Carbon Dioxide 29 mmol/L (22-29); Chloride 106 mmol/L (96-108); Estimated Glomerular Filt Rate > 60; Glucose Random 80 mg/dL (60-115); Potassium 3.8 mmol/L (3.3-5.1); Sodium 141 mmol/L (135-145)
[2024-05-18 18:06] LABS: TSH reflex Free T4 2.53 uIU/mL (0.32-4.0)
== END 2024-05-18 15:36 | disposition home or self-care (01) ==
LOC: HO.WFDLDS 15:35
PROVIDERS: Visit Provider Nurse Practitioner Family
DX: R53.83 Other fatigue (principal)
CPT/HCPCS: 36415; 80048; 82306; 84443; 85025

== ENCOUNTER 2024-07-05 15:26 | Outpatient (AMB) | payer BC, SELFPAY ==
--- NOTE | 2024-07-05 15:28 | MHC.PC.OV ---
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 Medications - Cholecalciferol 25 mcg daily Acute issue(s) - None Past Medical History - vitamin-D deficiency - testicular torsion Surgical History - wisdom tooth extraction Social History - Nonsmoker. Does not vape. Drinks 2 beer 2-3 times weekly. Denies recreational drug use - Has been making healthy dietary choices. Exercises routinely. Generally sleep well - Sexually active, in a monogamous relationship, no concern for STDs Health maintenance - Last eye exam was 2-3 years ago. Referred to ophthalmology for routine eye care - Last dental visit was 3-4 months ago - Last tetanus vaccine was in 11/2018 - Has not been vaccinated for the flu this season. Flu vaccination administered during this visit Reports fungal infection to the nail of the left great toe and 5th toe and requests treatment. [facility] Surgical History [place] teeth extracted Family History Paternal Grandfather Prostate cancer Social History Alcohol intake: current Alcohol intake frequency: holidays/special occasions only Alcohol type: hard liquor Patient Tobacco Use Status: Never used Tobacco e-Cigarette/Vaping Use: Former Use service: No Current occupational status: employed Current occupation: [employer] Current occupational exposures/hazards: No Cognitive needs: No Hearing needs: No Vision needs: No Questionnaire PHQ-9 Over the last 2 weeks, how often have you been bothered by any of the following problems? 1. Little interest or pleasure in doing things: not at all 2. Feeling down, depressed, or hopeless: not at all 3. Trouble falling or staying asleep, or sleeping too much: not at all 4. Feeling tired or having little energy: not at all 5. Poor appetite or overeating: not at all 6. Feeling bad about yourself - or that you are a failure or have let yourself or your family down: not at all 7. Trouble concentrating on things, such as reading the newspaper or watching television: not at all 8. Moving or speaking so slowly that other people could have noticed. Or the opposite - being so fidgety or restless that you have been moving around a lot more than usual: not at all 9. Thoughts that you would be better off or of hurting yourself in some way: not at all Total score: 0 Depression Screening Interpretation: Negative Depression Screening Done: Yes 39369 - PHQ-9 Billing: Yes Source: Developed by Drs. Dillan Wilson, Cielo Tabor, Haresh López and colleagues, with an educational vickey from [employer]. Thrive Questionnaire Date Thrive assessed: 07/05/24 I am a: Patient What is your living situation today?: I have a steady place to live Within the past 12 months, did the food you bought not last and you didn't have the money to get more?: Never true Within the past 12 months, did you worry whether your food would run out before you got money to buy more?: Never true Do you have trouble paying for medicines?: No Do you have trouble getting transportation to medical appointments?: No Do you have trouble paying your heating and electricity bill?: No Do you have trouble taking care of your child, family member or friend?: No Do you have trouble with day-to-day activities such as bathing, preparing meals, shopping, managing finances, etc.?: No Are you currently unemployed and looking for a job?: No Are you interested in more education?: No Please select the resources that you would like help with: None Currently or been in a relationship where the following occur: No concerns reported THRIVE Score: 0 AUDIT C Alcohol Use Questionnaire (AUDIT-C) 1. How often do you have a drink containing alcohol?: 2-3 times a week 2. How many drinks containing alcohol do you have on a typical day when you are drinking?: 1 or 2 3. How often do you have six or more drinks on one occasion?: Less than monthly Total Score: 4 Score Reviewed/Action Taken: Yes MARYAM-7 AMB Questionnaire MARYAM-7 Date MARYAM - 7 assessed: 07/05/24 Feeling nervous, anxious, or on edge: 0 = Not at all Not being able to stop or control worryin = Not at all Worrying too much about different things: 0 = Not at all Trouble relaxin = Not at all Being so restless that it is hard to sit still: 0 = Not at all Becoming easily annoyed or irritable: 0 = Not at all Feeling afraid as if something awful might happen: 0 = Not at all Total MARYAM-7 score (0-4 normal; 5-9 mild; 10-14 moderate; 15-21 severe): 0 Source: Developed by Drs. Dillan Wilson, Cielo Tabor, Haresh López and colleagues, with an educational vickey from [employer]. MARYAM-7 Assessment Billing MARYAM-7 Assessment Tool: MARYAM-7 Assessment 20429 Review of Systems Const Details: Denies chills, Denies fatigue, Denies fever(s), Denies headache(s) and Denies weakness HEENT Denies change in vision, Denies dizziness, Denies headache(s), Denies hearing loss, Denies nasal congestion, Denies sinus pain, Denies sinus pressure and Denies sore throat Card Denies chest pain, Denies lightheadedness, Denies dyspnea and Denies other (palpitations) Resp Denies cough, Denies dyspnea and Denies wheezing GI Denies abdominal pain, Denies melena, Denies hematochezia, Denies change in bowel habits, Denies dyspepsia and Denies nausea Denies hematuria and Denies dysuria Musc Denies abnormal gait, Denies myalgias, Denies arthralgias, Denies numbness and Denies tingling Skin/Breast Denies rash, Denies unusual bruising and Denies wounds Neuro Denies abnormal gait, Denies dizziness, Denies headache(s), Denies memory loss, Denies numbness, Denies Sensory deficit (Neuro), Denies tingling and Denies weakness Psych Denies anxiety, Denies depression and Denies memory loss Endo Denies cold intolerance, Denies fatigue, Denies heat intolerance, Denies polydipsia and Denies polyuria Rajan/Lymph Denies easy bleeding and Denies easy bruising Aller/Immun Denies wheezing Physical exam (Primary Care) Vital Signs: Last Vital Signs Temp 97.8 F 07/05/24 15:34 Pulse 86 07/05/24 15:34 Resp 16 07/05/24 15:34 BP 138/72 07/05/24 15:34 Pulse Ox 100 07/05/24 15:34 Oxygen Delivery Method Room Air 07/05/24 15:34 BMI result Body Mass Index 32.6 Tobacco/Smoking Status: Tobacco use Status Tobacco use date assessed 07/05/24 07/05/24 15:37 Patient Tobacco Use Status Never used Tobacco 07/05/24 15:32 Tobacco use type 02/16/24 12:12 e-Cigarette/Vaping Use Former Use 07/05/24 15:32 PHQ-9: PHQ-9 Score PHQ-9: Total score 0 07/05/24 16:09 Depression Screening Interpretation: Negative Thrive Assessment: Date of Thrive Assessment Date Thrive assessed 07/05/24 07/05/24 15:32 Currently or been in a relationship where the following occur: No concerns reported Const Other: General: no acute distress, well developed, alert and awake Nutritional Appearance: well nourished Orientation/consciousness: patient oriented x3 HENMT Head: Yes normocephalic and Yes atraumatic Ears: hearing grossly normal bilaterally and TM's normal bilaterally General nose exam: Normal external nose present and Normal nares present Mouth: Normal oral and palatal mucosa present and moist mucous membranes Teeth and gingiva: dentition normal Throat: Yes oropharynx normal Eyes Pupils: Equal, round and reactive pupils present and Pupil accommodation reflex normal EOM: EOMs intact bilaterally Neck Neck: Yes normal visual inspection, Yes no lymphadenopathy and Yes trachea midline Thyroid: Thyroid normal Carotids: no bruits Lymphatic: no lymphadenopathy noted Chest Chest palpation & inspection: normal inspection of the chest Resp Effort & Inspection: normal respiratory effort Auscultation: clear to auscultation bilaterally Cardio Rate: regular rate Rhythm: regular rhythm Heart sounds: S1 normal heart sound present, S2 normal heart sound present, no gallops, no murmurs and no rubs Bruits: no abdominal aortic bruits and no carotid bruits GI Palpation (GI): No Abdominal aortic bruit present, Soft to palpation, nontender, No hepatosplenomegaly present and No Rebound tenderness present Auscultation: normal bowel sounds General: Yes no CVA tenderness Back/Spine/Pelvis Back: no CVA tenderness Cervical Spine: cervical ROM normal and No Cervical spine tenderness Thoracic/Lumbar Spine: thoraco-lumbar ROM normal, No pain with thoraco-lumbar ROM, No thoracic spinal tenderness and No lumbar spinal tenderness Skin General: warm and dry. Normal skin color. Normal skin turgor Lesions: no lesions Rashes: no rashes Trauma: no lacerations or abrasions Wounds: no wounds Nails: Brown, thick nails of the left hebert toe and 5th toe, consistent with onychomycosis Neuro General: patient oriented x3, gait normal and CN's II-XI intact bilaterally Cranial nerves: Yes Equal, round and reactive pupils present Cognition (Neuro): normal cognition Gait exam (Neuro): Normal gait present Motor exam (neuro): 5/5 motor strength present throughout Sensory Exam: No Sensory deficit (Neuro) Deep tendon reflexes (DTR's): Right patellar reflex intensity grade: 2+ and Left patellar reflex intensity grade: 2+ Extrem General: Yes normal to inspection, No edema and No calf tenderness Psych Appearance: grossly normal Affect: normal affect Attitude: cooperative Thought process: Normal thought process present Office Procedures Flu Questionnaire Does the patient have a severe egg allergy?: No Does the patient have severe life threatening allergies?: No Does the patient have a fever or illness today?: No Has the patient ever had Guillain-[place] Syndrome?: No Has the patient ever had any past reaction to a flu shot?: No Immunizations Fluarix Triv 9129-1536 (PF) 45 mcg (15 mcg x 3)/0.5 mL IM syringe Performing Provider: Aylin Ramon CNP Performing Location: [facility] Administered by: Jeaneth Perez RN on 07/05/24 16:09 Dose Route Admin Location Dispensed Lot Number Expiration Date NDC Germination Worker 0.5 mL IM Right Deltoid 0.5 mL [id number] 11/27/24 [id number] [employer] VIS Given Date VIS Provided VIS Publication Date 07/05/24 Single Vaccine 21 Eligibility Eligibility Date Funding Source Not VFC Eligible 07/05/24 Private Coding Level of Care Code Est Pt Prev Care 18-39y(41709) Diagnoses Physical exam, annual Z00.00 Onychomycosis B35.1 Flu vaccine need Z23 Vitamin D deficiency E55.9 Obesity (BMI 30.0-34.9) E66.811 Eye exam, routine Z01.00 Additional Codes MARYAM-7 Assessment Billing - MARYAM-7 Assessment Tool: MARYAM-7 Assessment 39615 ([id number]) PHQ-9 - 64744 - PHQ-9 Billing: Yes ([id number]) Assessment & Plan Assessment & Plan (1) Physical exam, annual: Code(s): Z00.00 - Encounter for general adult medical examination without abnormal findings Category: Medical Plan: No significant functional limitation noted Healthy diet and routine exercise encouraged Verbalized understanding and agreed with the plan. (2) Onychomycosis: Code(s): B35.1 - Tinea unguium Category: Medical Plan: Brown, thick nails of the left hebert toe and 5th toe, consistent with onychomycosis Will check liver function and treat with terbinafine if normal Advised to get fasting lab work done in follow-up in 2-3 weeks. Return sooner with symptoms or concerns Verbalized understanding and agreed with treatment plan. (3) Flu vaccine need: Code(s): Z23 - Encounter for immunization Category: Medical Plan: Influenza vaccine administered today. (4) Vitamin D deficiency: Code(s): E55.9 - Vitamin D deficiency, unspecified Category: Medical Plan: Continue current treatment regimen Will check vitamin-D level and make changes as needed Verbalized understanding and agreed with the plan. (5) Obesity (BMI 30.0-34.9): Code(s): E66.811 - Obesity, class 1 Category: Medical Plan: He currently weighs 190 lb, BMI is 32.6 Healthy diet and routine exercise encouraged Referred to [facility] dietitian as requested Follow-up as needed Verbalized understanding and agreed with the plan. (6) Eye exam, routine: Code(s): Z01.00 - Encounter for examination of eyes and vision without abnormal findings Category: Medical Plan: Last eye exam was 2-3 years ago. Referred to ophthalmology for routine eye care. Orders: Orders Vitamin D 25-OH Total Today E55.9 - Vitamin D deficiency, unspecified Influenza [id number] Immunization Today Z23 - Encounter for immunization Referrals Ophthalmology Referral Z01.00 - Encounter for examination of eyes and vision without abnormal findings Nutrition/Dietitian Referral E66.811 - Obesity, class 1
[2024-07-05 15:34] VITALS: BP 138/72; PULSE 86; RESP 16; TEMP 36.6; O2SAT 100; BMI 32.6
--- OUTSIDE RECORDS SUMMARY | 2024-07-05 16:22 | XMS_ITS | Encounter Summary ---
Author Organization [facility] Address [address] [place] [address] Phone Care Team Providers Care Ip Paralegal Name Role Phone Rasheeda Correa MD Primary Care Provider [phone]- [phone] Encounter Details Date Type Department Care Team (Late st Contact Info) Description 12/13/2013 Documentation [facility] [place] Family Medicine [address] [place] [address] Family Medicine, Physician [address], [place] [phone] Social History Tobacco Use Types Packs/Day Years Used Date Smoking Tobacco: Never Assessed Sex and Gender Information Value Date Recorded Sex Assigned at Not on file Legal Sex Male 5:10 PM EDT Gender Identity Not on file Sexual Orientation Not on file documented as of this encounter Plan of Treatment Not on file documented as of this encounter Visit Diagnoses Not on filedocumented in this encounter Care Teams Ip Paralegal Relationship Specialty Start Date End Date Rasheeda Correa MD [address] [place] [address] ALYSSIA Hollingsworth [address] PCP - General 01/08/17 08/30/22 documented as of this encounter
--- OUTSIDE RECORDS SUMMARY | 2024-07-05 16:22 | XMS_ITS | Clinical Summary ---
Author Organization [facility] Address [address] [place] [id number] Phone Care Team Providers Care Electronic News Gathering Camera Person Name Role Phone Unavailable Primary Care Provider Unavailabl e Allergies No known active allergies Medications No known medications Active Problems Problem Noted Date Diagnosed Date Elevated TSH 08/20/2020 Overview (08/20/2020): Seen by Endocrinology in the past. Subclinical hypothyroidism with sl elevated TSH, free T4 normal. No treatment indicated unless TSH levels > 10, then would consider Levothyroxine. Immunizations Name Administration Dates Next Due DTaP 5 10/15/2003, 1,03/23/2000,01/15,1999 H1N1 05/10/2009 HPV Vaccine 9 Valent 01/02/2016 HPV, Quadrivalent 06/15/2014,11/16/2013 Hep A, ped/adol 11/16/2013,10/20/2010 Hep B, ped/adol 06/11/2000,1999,1999 Hib (PRP-T) 12/29/2000, 0,01/16/2000,11/11 IPV 10/15/2003, 0,01/16/2000,11/11 Influenza, injectable, trivalent 05/10/2009,04/30 MMR 10/15/2003,09/20/2000 Meningococcal B Trumenba 07/20/2019,03/14/2018 Meningococcal Conj (Menactra) MCV4P 01/02/2016,0 10/20/2010 Pneumococcal Conjugate 12/29/2000,2000,03/23/2000,01/15 Td (adult) (MBL), 2 Lf tetan us toxoid, PF, adsorbed 12/28/2018 Tdap 10/20/2010 Varicella 05/09/2008,09/20/2000 Family History Medical History Relation Name Comments Heart attack Father Jeremias Diabetes Paternal Grandfather Heart attack Paternal Grandfather Diabetes Paternal Grandmother Heart attack Paternal Grandmother Relation Name Status Comments Father Jeremias Alive Father: Elevate d cholesterol Maternal Grandfather Alive Maternal Grandmother Alive Mother Iona Alive Mother: Alive a nd well Other 1 Second Cousin: Deafness Other 2 great aunt: Jane betvelasquez mellitus Paternal Grandfather Alive Paternal Grandmother Alive Sister 1 Alive Sister: Alive a nd well, Alive and well Sister 2 Alive Sister: Alive a nd well, Alive and well Social History Tobacco Use Types Packs/Day Years Used Date Smoking Tobacco: Never Smokeless Tobacco: Never Tobacco Cessation:Counseling Given: Yes Comments:Never smoker Alcohol Use Standard Drinks/Week Comments Yes 0 (1 standard drink = 0.6 oz pur e alcohol) has tried Hunger/Food Answer Date Recorded In the last 12 months, did y ou or your family ever eat less than you felt you should because there wasn't enough money for food? No 07/20/2019 Stable Housing Answer Date Recorded Are you worried that in the next 2 months you may not have stable housing? No 07/20/2019 Transportation Concerns Answer Date Rec orded In the last 12 months, have you or your family ever had to go without healthcare because you didn't have a way to get there? No 07/20/2019 Hazards in Home Answer Date Recorded Think about the place you li ve. Do you have problems with any of the following? Pests (mice or roaches), mold, no/not working smoke detectors, water leaks, no window guards. No 2019 Financing Utilities Answer Date Recorde d In the last 12 months, has t he electric, gas, oil, or water company threatened to shut off your services in your home? No 07/20/2019 Safety at Home Answer Date Recorded Are you or your family worried about feeling saf e in your home? No 07/20/2019 Outside Support Answer Date Recorded Do you feel that you need mo re support from other people or programs to help you care for yourself or your family? No 07/20/2019 Understanding Health Concerns Answer Da te Recorded Do you need help understandi ng your or your child's healthcare needs (diagnosis, medications, plan, etc.)? No 07/20/2019 Financing Health Concerns Answer Date R ecorded In the last 12 months, was t here a time when your child needed to see a doctor or get medications or supplies but could not because of cost? No 07/20/2019 Missing School or Work Answer Date Americo rded Did you or your child miss s chool or work because of a health problem that could have been avoided? No 07/20/2019 Sex and Gender Information Value Date Recorded Sex Assigned at Not on file Legal Sex Male 5:10 PM EDT Gender Identity Not on file Sexual Orientation Not on file Last Filed Vital Signs Vital Sign Reading Time Taken Comments Blood Pressure 123/87 09/18/2021 9:09 AM EDT Pulse 77 09/18/2021 9:09 AM EDT Temperature 35.7 ??C (96.2 ??F) 09/18/2021 9:09 AM ED T Respiratory Rate - - Oxygen Saturation - - Inhaled Oxygen Concentration - - Weight 86.7 kg (191 lb 3.2 oz) 09/18/2021 9:09 A M EDT Height 161.3 cm (5' 3.5 ) 07/20/2019 1:13 PM EST Body Mass Index 33.34 07/20/2019 1:13 PM EST Plan of Treatment Health Maintenance Due Date Last Done Comments Influenza Vaccines (#1) 2023 05/10/2009, 05/09 COVID-19 Vaccine (3 - 2023-2 5 season) 2024 10/19/2020, 09/07/2020 DTaP,Tdap,and Td Vaccines (8 - Td or Tdap) 12/28/2028 12/28/2018, 10/20/2010, 10/15/2003, Additional history exists Hepatitis B Vaccines Completed 06/11/2000, 1999, 1999 HIB Vaccines Completed 12/29/2000, 03/01, 01/16/2000, Additional history exists Pneumococcal Vaccine Completed 12/29/2000, 06/17/2000, 03/23/2000, Additional history exists IPV Vaccines Completed 10/15/2003, 03/01, 01/16/2000, Additional history exists MMR Vaccines Completed 10/15/2003, 09/20/2000 Varicella Vaccines Completed 05/09/2008, 09/20/2000 Hepatitis A Vaccines Completed 11/16/2013, 10/21/19 11 HPV Vaccines Completed 01/02/2016, 05/31, 11/16/2013 Meningococcal Vaccine Completed 01/02/2016, 011 Men B Vaccine Completed 07/20/2019, 03/14/2018
--- OUTSIDE RECORDS SUMMARY | 2024-07-05 16:22 | XMS_ITS | Encounter Summary ---
Author Organization [facility] Address [address] [place] [address] Phone Care Team Providers Care Software Sales Name Role Phone Rasheeda Correa MD Primary Care Provider [phone]- [phone] Encounter Details Date Type Department Care Team (Late st Contact Info) Description 01/12/2017 Documentation [facility] [place] Family Medicine [address] [place] [address] Family Medicine, Physician [address] [place], [place] [phone] Social History Tobacco Use Types Packs/Day Years Used Date Smoking Tobacco: Never Comments:Never smoker Sex and Gender Information Value Date Recorded Sex Assigned at Not on file Legal Sex Male 5:10 PM EDT Gender Identity Not on file Sexual Orientation Not on file documented as of this encounter Plan of Treatment Not on file documented as of this encounter Visit Diagnoses Not on filedocumented in this encounter Care Teams Software Sales Relationship Specialty Start Date End Date Rasheeda Correa MD [address] [place] [address] ALYSSIA Hollingsworth [address] PCP - General 01/08/17 08/30/22 documented as of this encounter
--- OUTSIDE RECORDS SUMMARY | 2024-07-05 16:22 | XMS_ITS | Encounter Summary ---
Author Organization [facility] Address [address] [place] [address] Phone Care Team Providers Care Wastewater Project Engineer Name Role Phone Rasheeda Correa MD Primary Care Provider [phone]- [phone] Encounter Details Date Type Department Care Team (Late st Contact Info) Description 10/12/2013 Documentation [facility] [place] Family Medicine [address] [place], [place] [phone] Family Medicine, Physician [address], [place] [phone] Social History Tobacco Use Types Packs/Day Years [...] on filedocumented in this encounter Care Teams Wastewater Project Engineer Relationship Specialty Start Date End Date Rasheeda Correa MD [address] [place] [address] ALYSSIA Hollingsworth [address] PCP - General 01/08/17 08/30/22 documented as of this encounter
--- OUTSIDE RECORDS SUMMARY | 2024-07-05 16:22 | XMS_ITS | Encounter Summary ---
Author Organization [facility] Address [address] [place] [address] Phone Care Team Providers Care Foiling Machine Operator Name Role Phone Rasheeda Correa MD Primary Care Provider [phone]- [phone] Encounter Details Date Type Department Care Team (Late st Contact Info) Description 08/08/2013 Documentation [facility] [place] [address] [place], [place] [phone] Family Medicine, Physician [address], [place] [phone] Social History Tobacco Use Types Packs/Day Years [...] on filedocumented in this encounter Care Teams Foiling Machine Operator Relationship Specialty Start Date End Date Rasheeda Correa MD [address] [place] [address] ALYSSIA Hollingsworth [address] PCP - General 01/08/17 08/30/22 documented as of this encounter
--- OUTSIDE RECORDS SUMMARY | 2024-07-05 16:22 | XMS_ITS | Encounter Summary ---
Author Organization [facility] Address [address] [place] [phone] Phone Care Team Providers Care Pensionholder Information Clerk Name Role Phone Rasheeda Correa MD Primary Care Provider [phone]- [phone] Encounter Details Date Type Department Care Team (Late st Contact Info) Description 01/30/2011 Documentation [facility] [place] Family Medicine [address] [place], [place] [phone] Family Medicine, Physician [address], [place] [phone] Social History Tobacco Use Types Packs/Day Years [...] on filedocumented in this encounter Care Teams Pensionholder Information Clerk Relationship Specialty Start Date End Date Rasheeda Correa MD [address] [place] [address] ALYSSIA Hollingsworth [address] PCP - General 01/08/17 08/30/22 documented as of this encounter
--- OUTSIDE RECORDS SUMMARY | 2024-07-05 16:22 | XMS_ITS | Encounter Summary ---
Author Organization [facility] Address [address] [place] [address] Phone Care Team Providers Care Nuclear Medicine Technologist Name Role Phone Rasheeda Correa MD Primary Care Provider [phone]- [phone] Encounter Details Date Type Department Care Team (Late st Contact Info) Description 01/14/2017 Documentation [facility] [place] Family Medicine [address] [place] [address] Family Medicine, Physician [address] [place], [place] [phone] Social History Tobacco Use Types Packs/Day Years [...] on filedocumented in this encounter Care Teams Nuclear Medicine Technologist Relationship Specialty Start Date End Date Rasheeda Correa MD [address] [place] [address] ALYSSIA Hollingsworth [address] PCP - General 01/08/17 08/30/22 documented as of this encounter
--- OUTSIDE RECORDS SUMMARY | 2024-07-05 16:22 | XMS_ITS | Encounter Summary ---
Author Organization [facility] Address [address] [place] [address] Phone Care Team Providers Care Launderer Hand Name Role Phone Rasheeda Correa MD Primary Care Provider [phone]- [phone] Encounter Details Date Type Department Care Team (Late st Contact Info) Description 01/11/2017 Documentation [facility] [place] Family Medicine [address] [place] [address] Family Medicine, Physician [address] [id number] Social History Tobacco Use Types Packs/Day Years [...] on filedocumented in this encounter Care Teams Launderer Hand Relationship Specialty Start Date End Date Rasheeda Correa MD [address] [place] [address] ALYSSIA Hollingsworth [address] PCP - General 01/08/17 08/30/22 documented as of this encounter
--- OUTSIDE RECORDS SUMMARY | 2024-07-05 16:22 | XMS_ITS | Encounter Summary ---
Author Organization [facility] Address [address] [place] [address] Phone Care Team Providers Care Insulator Apprentice Name Role Phone Rasheeda Correa MD Primary Care Provider [phone]- [phone] Encounter Details Date Type Department Care Team (Late st Contact Info) Description 11/15/2009 Documentation [facility] [place] Family Medicine [address] [place], [place] [phone] Family Medicine, Physician [address] [phone] Social History Tobacco Use Types Packs/Day Years [...] on filedocumented in this encounter Care Teams Insulator Apprentice Relationship Specialty Start Date End Date Rasheeda Correa MD [address] [place] [address] ALYSSIA Hollingsworth [address] PCP - General 01/08/17 08/30/22 documented as of this encounter
--- OUTSIDE RECORDS SUMMARY | 2024-07-05 16:22 | XMS_ITS | Encounter Summary ---
Author Organization [facility] Address [address] [place] [address] Phone Care Team Providers Care Hog Raiser Name Role Phone Rasheeda Correa MD Primary Care Provider [phone]- [phone] Encounter Details Date Type Department Care Team (Late st Contact Info) Description 10/15/2016 Documentation [facility] [place] Family Medicine [address] [place], [place] [phone] Family Medicine, Physician [address] [phone] Social History Tobacco Use Types Packs/Day Years [...] on filedocumented in this encounter Care Teams Hog Raiser Relationship Specialty Start Date End Date Rasheeda Correa MD [address] [place] [address] ALYSSIA Hollingsworth [address] PCP - General 01/08/17 08/30/22 documented as of this encounter
--- OUTSIDE RECORDS SUMMARY | 2024-07-05 16:22 | XMS_ITS | Encounter Summary ---
Author Organization [facility] Address [address] [place] [address] Phone Care Team Providers Care Gang Drill Operator Name Role Phone Rasheeda Correa MD Primary Care Provider [phone]- [phone] Encounter Details Date Type Department Care Team (Late st Contact Info) Description 01/14/2017 Conversion Encounter [facility] [place] [address] [place] [address] Social History Tobacco Use Types Packs/Day Years [...] on filedocumented in this encounter Care Teams Gang Drill Operator Relationship Specialty Start Date End Date Rasheeda Correa MD [address] [place] [address] PCP - General 01/08/17 08/30/22 documented as of this encounter
== END 2024-07-05 16:00 | disposition home or self-care (01) ==
PROVIDERS: PCP Nurse Practitioner Family; Visit Provider Nurse Practitioner Family
DX: Z00.00 Encounter for general adult medical examination without abnormal findings (principal); B35.1 Tinea unguium; E66.811 Obesity, class 1; Z68.32 Body mass index [BMI] 32.0-32.9, adult; Z23 Encounter for immunization; E55.9 Vitamin D deficiency, unspecified

== ENCOUNTER → 2024-07-05 15:26 | Outpatient (BNVA) | payer BC, SELFPAY | PROVIDERS: PCP Nurse Practitioner Family; Visit Provider Nurse Practitioner Family | DX: Z00.00 Encounter for general adult medical examination without abnormal findings (principal); Z23 Encounter for immunization; B35.1 Tinea unguium; E55.9 Vitamin D deficiency, unspecified; E66.811 Obesity, class 1; Z68.32 Body mass index [BMI] 32.0-32.9, adult | CPT/HCPCS: 90471; 90656; 96127 ==